=== PATIENT | female | born 1940 | race Caucasian/White ===

== ENCOUNTER 2018-01-30 08:26 | Outpatient (REF) | payer MEDICARE, SELFPAY ==
[2018-01-30 14:28] LABS: HCT 42.2 % (36.0-46.0); HGB 13.9 g/dL (12.0-15.5); Mean Corp. HGB Concentration 32.9 g/dL (32.0-36.0); Mean Corpuscular Hemoglobin 31.5 pg (27.0-33.0); Mean Corpuscular Volume 95.7 fL (80-95); Mean Platelet Volume 11.3 fL (8.0-11.0); Platelet Count 187 x1000/uL (130-400); RBC 4.41 m/cumm (4.00-5.20); RBC Distribution Width 14.6 % (11.7-14.6); White Blood Cell Count 4.92 k/cumm (4.4-10.8)
[2018-01-30 14:35] LABS: BUN 18 mg/dL (7-18); CREATININE 1.06 mg/dL (0.55-1.02); Chloride 105 mmol/L (98-107); Estimated GFR 50.54 (mL/min/1.73m2); Glucose 127 mg/dL (70-100); Sodium 141 mmol/L (136-145); Vitamin B12 441 pg/mL (193-986)
[2018-01-30 14:45] LABS: Hemoglobin A1C 6.1 % (4.5-6.2)
== END 2018-01-30 08:46 ==
LOC: NCHCN 08:26
PROVIDERS: PCP Family Medicine; Visit Provider Family Medicine
DX: E53.8 Deficiency of other specified B group vitamins (principal); K21.9 Gastro-esophageal reflux disease without esophagitis; E11.9 Type 2 diabetes mellitus without complications
CPT/HCPCS: 80048; 85027; 82607; 83036

== ENCOUNTER 2018-07-04 16:28 | Outpatient (REF) | payer MEDICARE, BC, SELFPAY ==
[2018-07-04 20:19] LABS: HCT 40.9 % (36.0-46.0); HGB 13.8 g/dL (12.0-15.5); Mean Corp. HGB Concentration 33.7 g/dL (32.0-36.0); Mean Corpuscular Hemoglobin 31.7 pg (27.0-33.0); Mean Platelet Volume 11.4 fL (8.0-11.0); Platelet Count 185 x1000/uL (130-400); RBC 4.35 m/cumm (4.00-5.20); RBC Distribution Width 14.7 % (11.7-14.6); White Blood Cell Count 6.68 k/cumm (4.4-10.8)
[2018-07-04 20:41] LABS: ALT 20 U/L (12-78); AST 13 U/L (15-37); Albumin 3.7 g/dL (3.4-5.0); Alkaline Phosphatase 71 U/L (46-116); Anion Gap 8.3 mmol/L (3-11); BUN 15 mg/dL (7-18); Bilirubin, Total 0.3 mg/dL (0.2-1.0); CO2 27.7 mmol/L (21.0-32.0); CREATININE 0.91 mg/dL (0.55-1.02); Calcium 9.2 mg/dL (8.5-10.1); Chloride 106 mmol/L (98-107); Glucose 113 mg/dL (70-100); Sodium 142 mmol/L (136-145); Total Protein 7.3 g/dL (6.4-8.2)
[2018-07-04 21:35] LABS: ESR 17 MM/HR (0-30)
== END 2018-07-04 16:48 ==
LOC: NCHCN 16:28
PROVIDERS: PCP Family Medicine; Visit Provider Family Medicine
DX: R51 Headache (principal)
CPT/HCPCS: 80053; 85027; 85652

== ENCOUNTER 2018-07-12 00:51 | Outpatient (CLI) | payer MEDICARE, BC, SELFPAY ==
--- NOTE | 2018-07-12 14:49 | DI.MRI_ITS ---
SYMPTOMS/DIAGNOSIS: HEADACHES, R51, MOSTLY LEFT TEMPORAL X 6 WEEKS, WORSE WITH POSITION CHANGE OR VALSALVA; NORMAL SEDIMENTATION RATE BRAIN MRI: MRI examination of the brain was performed according to the usual protocol. There is mild generalized cerebral atrophy. There are scattered areas of abnormal signal in periventricular and subcortical white matter consistent with microvascular ischemic change. Areas of subtle signal change are also noted in the aleksandra, consistent with microvascular ischemic changes. There is normal flow void in the cabaz[place] of [place] vasculature. The orbital and temporal bone structures appear intact, as does the pituitary. Diffusion weighted imaging shows no evidence of infarction. Susceptibility weighted imaging shows no evidence of hemorrhage. CONCLUSION: Mild cerebral atrophy and presumed microvascular ischemic changes. No other significant abnormality seen.
== END 2018-07-12 01:11 ==
PROVIDERS: PCP Family Medicine; Visit Provider Family Medicine
DX: R51 Headache (principal); G31.1 Senile degeneration of brain, not elsewhere classified; I67.82 Cerebral ischemia
CPT/HCPCS: 70551

== ENCOUNTER 2018-07-30 10:36 | Outpatient (REF) | payer MEDICARE, BC, SELFPAY ==
[2018-07-30 20:01] LABS: COMMENT (LAB VIEW ONLY) 163.86 mg/dL; Microalb ug/mg Crea 4.5 ug/mg Cr
== END 2018-07-30 10:56 ==
LOC: NCHCN 10:36
PROVIDERS: PCP Family Medicine; Visit Provider Family Medicine
DX: E11.9 Type 2 diabetes mellitus without complications (principal)
CPT/HCPCS: 82043; 82570

== ENCOUNTER 2018-09-27 14:13 | Outpatient (CLI) | payer MEDICARE, BC, SELFPAY ==
--- NOTE | 2018-09-27 14:00 | DI.RAD_ITS ---
SYMPTOMS/DIAGNOSIS: CHRONIC COUGH, R05 PA AND LATERAL CHEST: The heart is normal in size. The lungs are clear. The mediastinal structures and pleura appear intact. CONCLUSION: Normal chest. No evidence of acute cardiopulmonary disease.
== END 2018-09-27 14:33 ==
PROVIDERS: PCP Family Medicine; Visit Provider Family Medicine
DX: R05 Cough (principal)
CPT/HCPCS: 71046

== ENCOUNTER 2019-08-23 13:19 | Outpatient (REF) | payer MEDICARE, BC, SELFPAY ==
[2019-08-23 17:43] LABS: COMMENT (LAB VIEW ONLY) 119.68 mg/dL; Microalb ug/mg Crea 2.9 ug/mg Cr
== END 2019-08-23 13:39 ==
LOC: NCHCN 13:19
PROVIDERS: PCP Family Medicine; Visit Provider Family Medicine
DX: E11.9 Type 2 diabetes mellitus without complications (principal)
CPT/HCPCS: 82043; 82570

== ENCOUNTER 2020-03-13 08:03 | Outpatient (REF) | payer MEDICARE, BC, SELFPAY ==
[2020-03-13 14:09] LABS: HCT 41.7 % (36.0-46.0); HGB 13.4 g/dL (11.2-15.7); MCH 30.5 pg (27.0-33.0); MCHC 32.1 % (32.0-36.0); MCV 94.8 fL (80-95); MPV 11.1 fL (8.0-11.0); Platelet Count 196 10^3/uL (130-400); RDW 14.4 % (11.7-14.6); WBC 5.32 10^3/uL (4.4-10.8)
[2020-03-13 14:50] LABS: Hemoglobin A1C 6.4 % (<5.7)
[2020-03-13 15:17] LABS: Anion Gap 9.6 mmol/L (3-11); BUN 22 mg/dL (7-18); CO2 27.4 mmol/L (21.0-32.0); CREATININE 1.01 mg/dL (0.55-1.02); Calculated LDL 118 mg/dL (<100); Chloride 104 mmol/L (98-107); Cholesterol 204 mg/dL (<200); Estimated GFR 53.15 (mL/min/1.73m2); Glucose 112 mg/dL (74-106); HDL Cholesterol 63 mg/dL (40-60); Potassium 4.2 mmol/L (3.5-5.1); Sodium 141 mmol/L (136-145); TSH (W/Ref FT4) 3.25 uIU/mL (0.36-3.74); Triglyceride 118 mg/dL (<150)
== END 2020-03-13 08:23 ==
LOC: NCHCN 08:03
PROVIDERS: PCP Family Medicine; Visit Provider Family Medicine
DX: E11.9 Type 2 diabetes mellitus without complications (principal)
CPT/HCPCS: 80048; 80061; 85027; 83036; 84443

== ENCOUNTER 2020-09-25 12:48 | Outpatient (REF) | payer MEDICARE, BC, SELFPAY ==
[2020-09-25 17:06] LABS: COMMENT (LAB VIEW ONLY) 94.47 mg/dL; Microalb ug/mg Crea 3.1 ug/mg Cr
== END 2020-09-25 12:49 | disposition home or self-care (01) ==
LOC: NCHCN 12:48
PROVIDERS: PCP Family Medicine; Visit Provider Family Medicine
DX: E11.9 Type 2 diabetes mellitus without complications (principal)
CPT/HCPCS: 82043; 82570

== ENCOUNTER 2020-12-08 01:13 | Outpatient (CLI) | payer MEDICARE, BC, SELFPAY ==
--- NOTE | 2020-12-08 | DI.MAMMO_ITS ---
Exam(s) MAMMO SCREENING EXAM: MAMMO SCREENING CLINICAL HISTORY: SCREENING,Z12.31. TECHNIQUE: Bilateral full field digital CC and MLO mammographic images were obtained with 3D tomosyn thesis and utilizing computer aided detection (CAD). COMPARISON: Prior mammograms dating back to 2011, the most recent being June 2018. FINDINGS: There are no new spiculated masses nor malignant appearing microcalcification groups. There is no significant architectural distortion nor skin thickening-retraction. IMPRESSION: No radiographic evidence of malignancy. BI-RADS Category 1 - Negative Breast Density - Category B - Scattered areas of fibroglandular density Breast density Category C or D implies that the patient has dense breast tissue. Dense breast tissue can make it harder to find cancer on a mammogram. Dense breast tissue is also associated with an incr eased risk of breast cancer. This information about the result of the mammogram report was provided to the patient to raise their awareness. Use this report when you speak with the patient about their risks for breast cancer, which includes their family history. At that time, you may recommend additional screening tests (Ultrasoun d or MRI) as these tests may add significant information. A negative radiographic report should not delay biopsy if a dominant or clinically suspicious mass is present. Up to ten percent of cancers are not identified on mammography. A negative report may reinforce clinical impression. Adenosis and dense breasts may obscure an underlying neoplasm. False positive reports average 6 to 10%. Patient will receive a letter notifying them of these results.
== END 2020-12-08 01:33 ==
PROVIDERS: PCP Family Medicine; Visit Provider Family Medicine
DX: Z12.31 Encounter for screening mammogram for malignant neoplasm of breast (principal)
CPT/HCPCS: 77063; 77067

== ENCOUNTER 2021-03-17 14:44 | Outpatient (REF) | payer MEDICARE, BC, SELFPAY ==
[2021-03-17 16:02] LABS: Hemoglobin A1C 6.1 % (<5.7)
[2021-03-17 16:07] LABS: Anion Gap 5.6 mmol/L (3-11); BUN 18 mg/dL (7-18); CO2 30.4 mmol/L (21.0-32.0); Calcium 9.1 mg/dL (8.5-10.1); Chloride 105 mmol/L (98-107); Estimated GFR 53.62 (mL/min/1.73m2); Glucose 135 mg/dL (74-106); Sodium 141 mmol/L (136-145); Vitamin B12 314 pg/mL (193-986)
== END 2021-03-17 14:45 | disposition home or self-care (01) ==
LOC: NCHCN 14:44
PROVIDERS: PCP Family Medicine; Visit Provider Family Medicine
DX: E11.9 Type 2 diabetes mellitus without complications (principal); E53.8 Deficiency of other specified B group vitamins
CPT/HCPCS: 80048; 82607; 83036

== ENCOUNTER 2021-04-30 00:40 | Outpatient (CLI) | payer MEDICARE, BC, SELFPAY ==
--- NOTE | 2021-04-30 13:41 | DI.DEXA_ITS ---
Exam(s) XR DEXA BONE DENSITY W/WO LOPEZ EXAM: XR DEXA BONE DENSITY W/WO LOPEZ CLINICAL HISTORY: POSTMENOPAUSAL, Z78.0 TECHNIQUE: COMPARISON: Comparison examination is 07/26/2016. FINDINGS: Lateral Spine Image: Unremarkable. No compression deformities identified. Left hip: Total T-Score: -0.1. This compares to 0.7 on the prior examination. Total Z-Score: 1.9 T- and Z-scores: Within normal limits. Lumbar Spine: Total T-Score: 0.7. This compares to 0.6 on the prior examination. Total Z-Score: 3.3 T- and Z-scores: Within normal limits. There is osteoporosis seen in the left forearm with a total T-score of -3.2 and Z-score of -0.4. Thi s compares with a total T-score of -3.2 on the prior examination. IMPRESSION: 1. No evidence of osteoporosis in the left hip or lumbar spine. 2. 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
== END 2021-04-30 01:00 ==
PROVIDERS: PCP Family Medicine; Visit Provider Family Medicine
DX: Z13.820 Encounter for screening for osteoporosis (principal); Z78.0 Asymptomatic menopausal state; M81.0 Age-related osteoporosis without current pathological fracture
CPT/HCPCS: 77080

== ENCOUNTER 2021-09-20 10:28 | Outpatient (REF) | payer MEDICARE, BC, SELFPAY ==
[2021-09-20 17:23] LABS: COMMENT (LAB VIEW ONLY) 25.54 mg/dL
== END 2021-09-20 10:29 | disposition home or self-care (01) ==
LOC: NCHCN 10:28
PROVIDERS: PCP Family Medicine; Visit Provider Family Medicine
DX: E11.9 Type 2 diabetes mellitus without complications (principal)
CPT/HCPCS: 82043; 82570

== ENCOUNTER 2022-03-15 16:40 | Outpatient (REF) | payer MEDICARE, BC, SELFPAY ==
[2022-03-15 18:37] LABS: Anion Gap 6.5 mmol/L (3-11); BUN 21 mg/dL (7-18); CO2 28.5 mmol/L (21.0-32.0); CREATININE 1.1 mg/dL (0.55-1.02); Calcium 9.4 mg/dL (8.5-10.1); Chloride 103 mmol/L (98-107); Estimated GFR 51.11 (mL/min/1.73m2); Glucose 135 mg/dL (74-106); Potassium 3.9 mmol/L (3.5-5.1); Sodium 138 mmol/L (136-145)
[2022-03-17 14:29] LABS: Hemoglobin A1C 6.3 % (<5.7)
== END 2022-03-15 16:41 | disposition home or self-care (01) ==
LOC: NCHCN 16:40
PROVIDERS: PCP Family Medicine; Visit Provider Family Medicine
DX: E11.9 Type 2 diabetes mellitus without complications (principal)
CPT/HCPCS: 80048; 83036

== ENCOUNTER 2022-05-18 14:24 | Outpatient (CLI) | payer MEDICARE, BC, SELFPAY ==
--- NOTE | 2022-05-18 | DI.RAD_ITS ---
Exam(s) XR CHEST 2V PA LATERAL EXAM: XR CHEST 2V PA LATERAL CLINICAL HISTORY: WHEEZING R06.2 COUGH R05.8 TECHNIQUE: 2D digital imaging was performed of the chest. Two images were obtained. PA and lateral views were obtained. COMPARISON: CR XR CHEST 2V PA LATERAL from 09/27/2018 FINDINGS: MEDIASTINUM: Normal. HEART: Normal. PULMONARY VASCULATURE: Normal. LUNGS: Clear. PLEURAL SPACE: No pleural effusion or pneumothorax. BONE:Within normal limits for the patient's age. OTHER FINDINGS:Normal. IMPRESSION: No acute pulmonary findings. DATA REPOSITORY: RADIATION DOSE DELIVERED:
== END 2022-05-18 14:44 ==
LOC: DI 14:24
PROVIDERS: PCP Family Medicine; Visit Provider Nurse Practitioner Family
DX: R06.2 Wheezing (principal); R05.8 Other specified cough
CPT/HCPCS: 71046

== ENCOUNTER → 2022-12-05 02:36 | Outpatient (CLI) | payer MEDICARE, BC, SELFPAY ==
--- NOTE | 2022-12-05 | DI.MAMMO_ITS ---
Exam(s) MAMMO SCREENING EXAM: MAMMO SCREENING CLINICAL HISTORY: SCREENING, Z12.31 TECHNIQUE: Mammograms were interpreted according to the usual protocol including computer analysis w [employer] CAD system, tomosynthesis and C-view imaging. COMPARISON: 2013 through 2020 FINDINGS: The breasts are composed of scattered fibroglandular densities, Breast Density category B. No suspicious masses or suspicious microcalcifications are seen. No skin thickening or abnormal axillary lymph nodes are seen. There has been no significant change from prior exams. IMPRESSION: BI-RADS Category 1, Negative mammogram Yearly screening mammography is recommended. Breast Density - Category B, scattered fibroglandular densities. A negative radiographic report should not delay biopsy if a dominant or clinically suspicious mass is present. Up to ten percent of cancers are not identified on mammography. A negative report may reinforce clinical impression. Adenosis and dense breasts may obscure an underlying neoplasm. False positive reports average 6 to 10%. Patient will receive a letter notifying them of these results.
== END ==
PROVIDERS: PCP Family Medicine; Visit Provider Family Medicine
DX: Z12.31 Encounter for screening mammogram for malignant neoplasm of breast (principal)
CPT/HCPCS: 77063; 77067

== ENCOUNTER 2023-03-27 15:54 | Outpatient (REF) | payer MEDICARE, SELFPAY ==
[2023-03-27 17:31] LABS: HCT 40.7 % (36.0-46.0); HGB 13.3 g/dL (11.2-15.7); MCH 30.4 pg (27.0-33.0); MCHC 32.7 % (32.0-36.0); MCV 93 fL (80-95); MPV 12.1 fL (8.0-11.0); Platelet Count 163 10^3/uL (130-400); RBC 4.37 10^6/uL (3.93-5.22); RDW 14.5 % (11.7-14.6); RDW-SD 49.9 fL; WBC 6.71 10^3/uL (4.4-10.8)
[2023-03-27 17:51] LABS: Hemoglobin A1C 6.3 % (<5.7)
[2023-03-27 17:56] LABS: Anion Gap 5.5 mmol/L (3-11); BUN 17 mg/dL (7-18); CO2 30.5 mmol/L (21.0-32.0); CREATININE 0.9 mg/dL (0.55-1.02); Chloride 106 mmol/L (98-107); Estimated GFR 64.63 (mL/min/1.73m2); Glucose 122 mg/dL (74-106); Potassium 4.5 mmol/L (3.5-5.1); Sodium 142 mmol/L (136-145); Vitamin B12 385 pg/mL (193-986)
== END 2023-03-27 15:55 | disposition home or self-care (01) ==
LOC: NCHCN 15:54
PROVIDERS: PCP Family Medicine; Visit Provider Family Medicine
DX: E11.9 Type 2 diabetes mellitus without complications (principal); E53.8 Deficiency of other specified B group vitamins
CPT/HCPCS: 80048; 85027; 82607; 83036

== ENCOUNTER 2023-12-25 16:16 | Outpatient (REF) | payer MEDICARE, SELFPAY ==
[2023-12-25 19:18] LABS: HCT 41.8 % (36.0-46.0); HGB 13.4 g/dL (11.2-15.7); MCH 30.5 pg (27.0-33.0); MCHC 32.1 % (32.0-36.0); MCV 95 fL (80-95); MPV 12.5 fL (8.0-11.0); Platelet Count 159 10^3/uL (130-400); RDW 14.4 % (11.7-14.6); RDW-SD 50.4 fL; WBC 6.05 10^3/uL (4.4-10.8)
[2023-12-25 20:02] LABS: ALT 17 U/L (14-59); AST 14 U/L (15-37); Albumin 3.5 g/dL (3.4-5.0); Alkaline Phosphatase 74 U/L (46-116); Anion Gap 8.5 mmol/L (3-11); BUN 15 mg/dL (7-18); Bilirubin, Total 0.32 mg/dL (0.2-1.0); CO2 27.5 mmol/L (21.0-32.0); CREATININE 0.9 mg/dL (0.55-1.02); Calcium 9.3 mg/dL (8.5-10.1); Chloride 107 mmol/L (98-107); Estimated GFR 64.23 (mL/min/1.73m2); Glucose 111 mg/dL (74-106); NT-proBNP 253 pg/mL (<300); Potassium 4.7 mmol/L (3.5-5.1); Sodium 143 mmol/L (136-145); Total Protein 7.1 g/dL (6.4-8.2)
[2023-12-25 20:28] LABS: Hemoglobin A1C 6.3 % (<5.7)
== END 2023-12-25 16:17 | disposition home or self-care (01) ==
LOC: NCHCN 16:16
PROVIDERS: PCP Family Medicine; Visit Provider Family Medicine
DX: E11.9 Type 2 diabetes mellitus without complications (principal); R06.09 Other forms of dyspnea
CPT/HCPCS: 80053; 85027; 83036; 83880

== ENCOUNTER 2024-01-05 07:04 | Day surgery (SDC) | payer MEDICARE, SELFPAY ==
[2024-01-05 07:07] VITALS: BP 157/81; PULSE 60; RESP 16; TEMP 36.3; O2SAT 99
[2024-01-05] MEDS: Tropicam./Phenyleph. (1/2.5%) 5 ML BTL OS ×3 (07:19→07:30)
--- NOTE | 2024-01-05 07:49 | ANES.PREOP_ITS ---
General Info Date of Service Date Performed: 01/05/24 Height: 5 ft 4 in Weight: 70.3 kg Body Mass Index (BMI): 26.6 Surgical Procedure: Operation Date: 01/05/24 09:40 Proposed Procedure Side Surgeon p Cataract Extraction with IOL Implant Left Frank Cancino MD Meds Allergies and Home Medications Allergies Allergy/AdvReac Type Severity Reaction Status Date / Time Penicillins AdvReac Severe Nausea Verified 01/05/24 07:19 Home Medication ?Medication ?Instructions ?Recorded cholecalciferol (vitamin D3) 50 2,000 units PO DAILY 03/13/13 mcg (2,000 unit) capsule (Vitamin D3) cyanocobalamin (vitamin B-12) 1 mcg PO DAILY 03/13/13 1,000 mcg tablet (Vitamin B-12) azelastine 137 mcg (0.1 %) nasal 2 spray intranasal BID 01/02/24 spray pantoprazole 40 mg tablet,delayed 40 mg PO DAILY 01/02/24 release Current Visit Medications: Current Medications Generic Name Dose Route Start Last Admin Trade Name Freq PRN Reason Stop Dose Admin Acetaminophen 1,000 mg 01/05/24 06:00 Acetaminophen 500 Mg Tab PO 02/04/24 05:59 Q4H PRN PRN Balanced Salt Solution 500 ml 01/05/24 06:00 Balanced Salt Soln.-Plus 500 Ml Bag OP 02/04/24 05:59 DIRECTED ESTRELLA Miscellaneous Medication 0 ml 01/05/24 06:00 Prednisolone 1%, Moxifloxacin 0.5%, Bromfenac 0.09% 5.6ml Btl OS 02/04/24 05:59 DIRECTED ESTRELLA Miscellaneous Medication 0 ml 01/05/24 06:00 01/05/24 07:30 Tropicam./Phenyleph. (1/2.5%) 5 Ml Btl OS 02/04/24 05:59 1 drp DIRECTED ESTRELLA Administration Tetracaine HCl 0 ml 01/05/24 06:00 Tetracaine 0.5% 4 Ml Btl OS 02/04/24 05:59 DIRECTED ESTRELLA PFSH Active Problems Active Problems: Problem Status Onset Code Nuclear age-related cataract, left eye Acute H25.12 Throat clearing Acute R68.89 Chronic cough Acute R05 Globus sensation Acute R09.89 Medical History Medical History Prediabetes Diverticulosis Seborrheic dermatitis Allergic rhinitis Osteoarthritis Type 2 diabetes mellitus without complication GERD (gastroesophageal reflux disease) Vitamin B 12 deficiency Melanoma Tobacco Smoking/Tobacco Use Status: Former Tobacco Use Alcohol Alcohol Intake: current Alcohol intake frequency: 0-2 drinks per day Alcohol type: wine Substance Use Substance use: Never Substance use type: does not use Vital Signs and Lab Results Vital Signs Most Recent Vital Signs in EMR: Most Recent Vital Signs Temp Pulse Resp BP Pulse Ox 36.3 C L 60 16 157/81 H 99 01/05/24 07:07 01/05/24 07:07 01/05/24 07:07 01/05/24 07:07 01/05/24 07:07 Point of Care Results Point of Care Results: Finger Stick Blood Glucose 124 01/05/24 07:21 Lab Results Blood Type / Crossmatch: No Data to Display Complete Blood Count: White Blood Count 6.05 10^3/uL (4.4-10.8) 12/25/23 11:40 Red Blood Count 4.40 10^6/uL (3.93-5.22) 12/25/23 11:40 Hemoglobin 13.4 g/dL (11.2-15.7) 12/25/23 11:40 Hematocrit 41.8 % (36.0-46.0) 12/25/23 11:40 Platelet Count 159 10^3/uL (130-400) 12/25/23 11:40 Complete Metabolic Panel: Sodium 143 mmol/L (136-145) 12/25/23 11:40 Potassium 4.7 mmol/L (3.5-5.1) 12/25/23 11:40 Chloride 107 mmol/L (98-107) 12/25/23 11:40 Carbon Dioxide 27.5 mmol/L (21.0-32.0) 12/25/23 11:40 BUN 15 mg/dL (7-18) 12/25/23 11:40 Creatinine 0.9 mg/dL (0.55-1.02) 12/25/23 11:40 Est GFR (CKD-EPI 2020) 64.23 (mL/min/1.73m2) 12/25/23 11:40 Calcium 9.3 mg/dL (8.5-10.1) 12/25/23 11:40 Albumin 3.5 g/dL (3.4-5.0) 12/25/23 11:40 Glucose 111 mg/dL (74-106) H 12/25/23 11:40 Hemoglobin A1c 6.3 % (<5.7) H 12/25/23 11:40 Liver Function Panel: Alanine Aminotransferase (ALT/SGPT) 17 U/L (14-59) 12/25/23 11: 40 Aspartate Amino Transf (AST/SGOT) 14 U/L (15-37) L 12/25/23 11: 40 Coagulation Panel: No Data to Display Cardiac Panel: NT-Pro-B Natriuret Pep 253 pg/mL (<300) 12/25/23 Arterial Blood Gas: No Data to Display Venous Blood Gas: No Data to Display Pancreas Panel: No Data to Display Thyroid Panel: No Data to Display Infectious Disease: No Data to Display Blood Cultures: 2 No Data to Display Toxicology Panel: No Data to Display Imaging and Studies Imaging and Studies Study information below may be from another EMR and interpreted by another provider. Please see original notes in EMR for more complete details. Stress Test Summary: 06/18/14 IMPRESSION: Borderline stress test after maximal exercise. COMMENTS: 1. Functional capacity was diminished 2. Heart rate and bp response to stress were normal. Normal recovery. 3. Mac treadmill score -1. This score predicts a moderate risk of cardiac events. RECOMMENDATIONS: Stress test myocardial perfusion imaging or stress echocardiogram should be performed if clinically indicated. Echocardiogram Summary: 06/30/14 Impressions: Normal study. Summary: 1. Left ventricle: The cavity size was normal. Wall thickness was normal. Systolic function was normal. The estimated ejection fraction was 65%. Wall motion was normal; there were no regional wall motion abnormalities. 2. Aortic valve: Valve area: 3.1cm^2(VTI). Valve area: 3cm^2 (Vmax). 3. Right ventricle: The cavity size was normal. Wall thickness was normal. Systolic function was normal. Anesthesia Assessment and Plan Anesthesia History Personal History: No History of Anesthesia Complications Family History: No Family History of Anesthesia Complications Exercise Tolerance Exercise Tolerance: Metabolic Equivalents>4 Pertinent Negatives Pertinent Negatives: No Symptoms of GERD, No Major Cardiovascular Symptoms or Complaints and No Major Pulmonary Symptoms or Complaints Cardiac & Pulmonary Exam Cardiac Exam: Normal S1/S2 Heart Sounds Pulmonary Exam: Clear Bilateral Breath Sounds Implantable Cardiac Device Does patient have a Pacemaker or an ICD?: No Airway Exam Known Difficult Airway: No Mallampati Class: 3 Mouth Opening: Normal (> 3cm) Thyromental Distance: Greater than 3 cm Neck Range of Motion: Full ROM Neck Circumference: Normal Teeth Condition: Normal Dentition ASA Classification ASA Score: ASA 2 Emergency Case?: No NPO Status NPO Status: NPO Clears >2 hours, Solids >8 hours Anesthesia Plan Resuscitation Status: Full Code Anesthesia Technique: MAC Anesthesia Airway Planned: Natural Airway Monitors Used: Standard Monitors
[2024-01-05 07:51] VITALS: BMI 26.6
[2024-01-05] MEDS: Povidone-Iodine Ophth 30 ML BTL (09:16)
[2024-01-05] MEDS: Tetracaine 0.5% 4 ML BTL OS (09:18)
[2024-01-05] MEDS: Lidocaine 1% Pres-Free 5 ML VIAL (09:23)
[2024-01-05] MEDS: Duovisc Viscoelastic System EACH 1 EACH (09:23)
[2024-01-05] MEDS: Balanced Salt Soln.-PLUS 500 ML BAG OP (09:23)
[2024-01-05] MEDS: Prednisolone 1%, Moxifloxacin 0.5%, Bromfenac 0.09% 5.6ML BTL OS (09:40)
--- NOTE | 2024-01-05 09:46 | ROE_ITS ---
Date of service: 01/05/24 Time of Service: 09:47 Operative Note Operative Note DATE OF PROCEDURE: 01/05/24 PRE-OP DIAGNOSIS: Nuclear cataract, left eye POST-OP DIAGNOSIS: same PROCEDURE: Cataract extraction using phacoemulsification with intraocular lens implant, left eye SURGEON: Frank Cancino ANESTHESIA TYPE: Local By Surgeon and MAC Refer to Anesthesia Record PATHOLOGY: none sent COMPLICATIONS: None Patient was transported to: same day Patient's condition: stable Implants: Phil Clareon [id number] Indications: Progressive decreased vision due to cataract, left eye Procedure Description: CATARACT SURGERY OPERATIVE REPORT PREOPERATIVE DIAGNOSIS: Nuclear cataract, left eye POSTOPERATIVE DIAGNOSIS: Same OPERATION: Cataract extraction using phacoemulsification with posterior chamber intraocular lens implant, left eye. IOL: IOL Account Resolution Expert/Model: Phil Clareon [id number] IOL Power: + 23.0 diopters IOL Serial Number: [id number] Optic Diameter: 6.0mm Haptic/Overall Diameter: 13.0mm PHACO INFO: Phil Interneerurion Vision System with OZil and Active Fluidics Cumulative Dispersed Energy (CDE): 11.1 seconds SURGEON: Frank Cancino MD, SONIYA ANESTHESIA: Monitored Anesthesia Care (MAC), with local sub-tenon's anesthetic infiltration COMPLICATIONS: None SPECIMENS: None INDICATIONS FOR PROCEDURE: The patient is a 83-year-old lady with history of diminished visual acuity in her left eye secondary to the development of nuclear cataract. She is significantly symptomatic that she desires cataract surgery and attempt to improve and maximize her vision. The option of cataract surgery was offered to the patient and she wished to proceed. See office notes for detailed information. PROCEDURE: The correct surgical eye was identified and marked as the left eye and the pupil was dilated in the preoperative area using mydriatics and cycloplegics. The dilated pupil size was 5.0 mm. The patient elected to proceed without oral sedation. The patient was brought to the operating room where cardiopulmonary monitoring was instituted and surgical time-out was performed, confirming the correct operative eye and IOL power. Topical anesthesia was administered and ophthalmic povidone-iodine 5% was insti lled into the conjunctival fornices. The dhara-ocular area was prepped with Betadine 10% solution and draped in the usual sterile fashion for intraocular surgery, including an aperture drape. A Tegaderm transparent film dressing was cut in half and used to cover the lashes and lid margins. Care was taken to sequester the lashes and lid margins under the Tegaderm dressing. A lid speculum was placed between the lids of the operative eye and the Phil LuxOR Revalia operating microscope was maneuvered into position. Noreen scissors were then used to make a conjunctival buttonhole approximately 6mm posterior to the limbus in the inferonasal quadrant. Blunt dissection was carried out to expose bare sclera, and a blunt-tipped sub-tenon?s anesthesia cannula was introduced and passed posteriorly along the globe where non- preserved plain lidocaine was injected into posterior sub-Tenon?s space. A sideport knife was used to make a paracentesis port. Intraocular phenylephrine/lidocaine was injected into the anterior chamber. The anterior chamber was then filled with viscoelastic. A keratome knife was used construct a two-plane clear corneal tunnel extending 2.0mm into clear cornea. A flap was raised on the anterior capsule and capsulorhexis forceps were used to complete a continuous curvilinear capsulorhexis of 5.0 mm. Balanced salt solution was then used to perform cortical cleaving hydrodissection and nuclear hydrodelineation until the lens could be freely rotated within the capsular bag. The lens nucleus was then disassembled and removed within the capsular bag and iris plane using phacoemulsification. Residual cortical material was removed using the irrigation/aspiration handpiece. The posterior capsule was carefully polished to remove as much residual lens epithelial cells as safely possible. The capsular bag was then inflated and the anterior chamber deepened with viscoelastic. The lens implant described above was inserted into the capsular bag using the Phil Autonome Injector. A Kuglen hook was used to dial the IOL into position. Residual viscoelastic was then removed first from posterior to the IOL, then from the anterior chamber using the I/A handpiece. The lens implant was noted to center nicely within the capsular bag. The incisions were stromally hydrated, and the anterior chamber was reformed using BSS. Then 0.5cc of moxifloxacin 1.0mg/ml were injected into the capsular bag and anterior chamber. The incisions were checked with a Weck spear and found to be secure. Several drops of ophthalmic povidone-iodine 5% were then applied to the eye followed by two drops of combination steroid/NSAID/antibiotic solution. The drapes were removed and a clear plastic protective eye shield was placed over the eye. The patient was then returned to [facility] Day Surgery in stable condition.
--- NOTE | 2024-01-05 09:46 | W.PM.DSUDISC ---
Date of service: 01/05/24 Time of Service: 09:46 Discharge Plan Disposition Patient Disposition: Home Discharge Details Attending Provider: Frank Cancino Primary Care Provider: Nayla Rosenbaum Home Meds and New Rx's Prescriptions: No Action cyanocobalamin (vitamin B-12) [Vitamin B-12] 1,000 MCG tablet 1 mcg PO DAILY cholecalciferol (vitamin D3) [Vitamin D3] 2,000 UNIT capsule 2,000 units PO DAILY pantoprazole 40 mg tablet,delayed release (DR/EC) 40 mg PO DAILY azelastine 137 mcg (0.1 %) spray,non-aerosol 2 spray INTRANASAL BID Patient Comments: SPRAY 1-2 SPRAYS INTO BOTH NOSTRILS TWO TIMES A DAY Discharge Instructions Stand Alone Forms: [facility] Post-Op Cataract, Jose Mahoney ([facility]) Discharge Orders Discharge Orders: Discharge Order (Routine); Ordered 01/05/24 Ordered By: Frank Cancino DS: Diagnosis Discharge Diagnosis (1) Nuclear age-related cataract, left eye: Status: Resolved
[2024-01-05 09:47] VITALS: BP 161/74; PULSE 63; RESP 18; TEMP 36.6; O2SAT 98
--- NOTE | 2024-01-05 10:38 | W.ANESPOSTOP ---
Postoperative Evaluation Date, Time and Location Date Performed: 01/05/24 Time Performed: 09:52 Patient Location: Day Surgery Unit Vital Signs Most Recent Imported Vital Signs: Most Recent Vital Signs Temp Pulse Resp BP Pulse Ox 36.6 C 63 18 161/74 H 98 01/05/24 09:47 01/05/24 09:47 01/05/24 09:47 01/05/24 09:47 01/05/24 09:47 Pain Score Most Recent Pain Score: Most Recent Pain Score Pain Level 0 01/05/24 09:47 Assessment Mental Status: Awake (Alert & Oriented to Patient Baseline) Airway and Respiratory Function: Patent airway with normal (patient baseline) respiratory exam Cardiovascular Function: Hemodynamically Stable Hydration Status: Adequately Hydrated Nausea & Vomiting: No Nausea or Vomiting Pain: Pt. Denies Any Pain Peripheral Nerve Block: Patient did not receive a nerve block
== END 2024-01-05 10:30 | disposition home or self-care (01) ==
LOC: SUR 07:04
PROVIDERS: PCP Family Medicine; Visit Provider Ophthalmology
PROC: (CPT 66984; principal; 2024-01-05 09:30)
DX: H25.12 Age-related nuclear cataract, left eye (principal)
CPT/HCPCS: 66984; 00123; V2632; J2003

== ENCOUNTER 2024-01-19 06:31 | Day surgery (SDC) | payer MEDICARE, SELFPAY ==
[2024-01-19] MEDS: Tropicam./Phenyleph. (1/2.5%) 5 ML BTL OD ×3 (06:47→06:57)
[2024-01-19 06:48] VITALS: BP 146/76; PULSE 60; RESP 17; TEMP 36.4; O2SAT 98
--- NOTE | 2024-01-19 08:09 | ANES.PREOP_ITS ---
General Info Date of Service Date Performed: 01/19/24 Height: 5 ft 4 in Weight: 70.5 kg Body Mass Index (BMI): 26.6 Surgical Procedure: Operation Date: 01/19/24 08:40 Proposed Procedure Side Surgeon p Cataract Extraction with IOL Implant Right Frank Cancino MD Meds Allergies and Home Medications Allergies Allergy/AdvReac Type Severity Reaction Status Date / Time Penicillins AdvReac Severe Nausea Verified 01/19/24 06:54 Home Medication ?Medication ?Instructions ?Recorded cholecalciferol (vitamin D3) 50 2,000 units PO DAILY 03/13/13 mcg (2,000 unit) capsule (Vitamin D3) cyanocobalamin (vitamin B-12) 1 mcg PO DAILY 03/13/13 1,000 mcg tablet (Vitamin B-12) azelastine 137 mcg (0.1 %) nasal 2 spray intranasal BID 01/02/24 spray pantoprazole 40 mg tablet,delayed 40 mg PO DAILY 01/02/24 release Current Visit Medications: Current Medications Generic Name Dose Route Start Last Admin Trade Name Freq PRN Reason Stop Dose Admin Acetaminophen 1,000 mg 01/19/24 06:15 Acetaminophen 500 Mg Tab PO 02/18/24 06:14 Q4H PRN PRN Balanced Salt Solution 500 ml 01/19/24 06:15 Balanced Salt Soln.-Plus 500 Ml Bag OP 02/18/24 06:14 DIRECTED ESTRELLA Miscellaneous Medication 0 ml 01/19/24 06:15 Prednisolone 1%, Moxifloxacin 0.5%, Bromfenac 0.09% 5.6ml Btl OD 02/18/24 06:14 DIRECTED ESTRELLA Miscellaneous Medication 0 ml 01/19/24 06:15 01/19/24 06:57 Tropicam./Phenyleph. (1/2.5%) 5 Ml Btl OD 02/18/24 06:14 1 drp DIRECTED ESTRELLA Administration Tetracaine HCl 0 ml 01/19/24 06:15 Tetracaine 0.5% 4 Ml Btl OD 02/18/24 06:14 DIRECTED ESTRELLA PFSH Active Problems Active Problems: Problem Status Onset Code Nuclear age-related cataract, right eye Acute H25.11 Nuclear age-related cataract, left eye Resolved H25.12 Throat clearing Acute R68.89 Chronic cough Acute R05 Globus sensation Acute R09.89 Medical History Medical History Prediabetes Diverticulosis Seborrheic dermatitis Allergic rhinitis Osteoarthritis Type 2 diabetes mellitus without complication GERD (gastroesophageal reflux disease) Vitamin B 12 deficiency Melanoma Tobacco Smoking/Tobacco Use Status: Former Tobacco Use Alcohol Alcohol Intake: current Alcohol intake frequency: 0-2 drinks per day Alcohol type: wine Substance Use Substance use: Never Substance use type: does not use Vital Signs and Lab Results Vital Signs Most Recent Vital Signs in EMR: Most Recent Vital Signs Temp Pulse Resp BP Pulse Ox 36.4 C L 60 17 146/76 H 98 01/19/24 06:48 01/19/24 06:48 01/19/24 06:48 01/19/24 06:48 01/19/24 06:48 Point of Care Results Point of Care Results: Finger Stick Blood Glucose 131 01/19/24 06:46 Lab Results Blood Type / Crossmatch: No Data to Display Complete Blood Count: White Blood Count 6.05 10^3/uL (4.4-10.8) 12/25/23 11:40 Red Blood Count 4.40 10^6/uL (3.93-5.22) 12/25/23 11:40 Hemoglobin 13.4 g/dL (11.2-15.7) 12/25/23 11:40 Hematocrit 41.8 % (36.0-46.0) 12/25/23 11:40 Platelet Count 159 10^3/uL (130-400) 12/25/23 11:40 Complete Metabolic Panel: Sodium 143 mmol/L (136-145) 12/25/23 11:40 Potassium 4.7 mmol/L (3.5-5.1) 12/25/23 11:40 Chloride 107 mmol/L (98-107) 12/25/23 11:40 Carbon Dioxide 27.5 mmol/L (21.0-32.0) 12/25/23 11:40 BUN 15 mg/dL (7-18) 12/25/23 11:40 Creatinine 0.9 mg/dL (0.55-1.02) 12/25/23 11:40 Est GFR (CKD-EPI 2020) 64.23 (mL/min/1.73m2) 12/25/23 11:40 Calcium 9.3 mg/dL (8.5-10.1) 12/25/23 11:40 Albumin 3.5 g/dL (3.4-5.0) 12/25/23 11:40 Glucose 111 mg/dL (74-106) H 12/25/23 11:40 Hemoglobin A1c 6.3 % (<5.7) H 12/25/23 11:40 Liver Function Panel: Alanine Aminotransferase (ALT/SGPT) 17 U/L (14-59) 12/25/23 11: 40 Aspartate Amino Transf (AST/SGOT) 14 U/L (15-37) L 12/25/23 11: 40 Coagulation Panel: No Data to Display Cardiac Panel: NT-Pro-B Natriuret Pep 253 pg/mL (<300) 12/25/23 Arterial Blood Gas: No Data to Display Venous Blood Gas: No Data to Display Pancreas Panel: No Data to Display Thyroid Panel: No Data to Display Infectious Disease: No Data to Display Blood Cultures: No Data to Display Toxicology Panel: No Data to Display Imaging and Studies Imaging and Studies Study information below may be from another EMR and interpreted by another provider. Please see original notes in EMR for more complete details. Stress Test Summary: 06/18/14 IMPRESSION: Borderline stress test after maximal exercise. COMMENTS: 1. Functional capacity was diminished 2. Heart rate and bp response to stress were normal. Normal recovery. 3. Mac treadmill score -1. This score predicts a moderate risk of cardiac events. RECOMMENDATIONS: Stress test myocardial perfusion imaging or stress echocardiogram should be performed if clinically indicated. Echocardiogram Summary: 06/30/14 Impressions: Normal study. Summary: 1. Left ventricle: The cavity size was normal. Wall thickness was normal. Systolic function was normal. The estimated ejection fraction was 65%. Wall motion was normal; there were no regional wall motion abnormalities. 2. Aortic valve: Valve area: 3.1cm^2(VTI). Valve area: 3cm^2 (Vmax). 3. Right ventricle: The cavity size was normal. Wall thickness was normal. Systolic function was normal. Anesthesia Assessment and Plan Anesthesia History Personal History: No History of Anesthesia Complications Family History: No Family History of Anesthesia Complications Exercise Tolerance Exercise Tolerance: Metabolic Equivalents>4 Pertinent Negatives Pertinent Negatives: No Symptoms of GERD and No Major Pulmonary Symptoms or Complaints Cardiac & Pulmonary Exam Cardiac Exam: Normal S1/S2 Heart Sounds Pulmonary Exam: Clear Bilateral Breath Sounds Implantable Cardiac Device Does patient have a Pacemaker or an ICD?: No Airway Exam Known Difficult Airway: No Mallampati Class: 3 Mouth Opening: Normal (> 3cm) Thyromental Distance: Greater than 3 cm Neck Range of Motion: Full ROM Neck Circumference: Normal Teeth Condition: Normal Dentition ASA Classification ASA Score: ASA 2 Emergency Case?: No NPO Status NPO Status: NPO Clears >2 hours, Solids >8 hours Anesthesia Plan Resuscitation Status: Full Code Anesthesia Technique: MAC Anesthesia Airway Planned: Natural Airway Monitors Used: Standard Monitors Preoperative Comments:: Patient reports a couple episodes of chest pain last week that started under her left breast and radiates around to her left scapula. Patient reports she was evaluated by Dr. Rosenbaum who completed an EKG that was normal as well as blood tests. Patient was educated that given the new onset of symptoms, it would be prudent to review the note by her primary care as well as the EKG/bloodwork findings. Patient voices frustration that case is being delayed this morning and stated, I wish I had never told you about this. Patient assured that we are working to obtain the proper documentation as quickly as possible to proceed with her second cataract surgery. LP Called Dr. Rosenbaum' office, patient's last visit was for her Preop H&P which does not mention any chest discomfort or EKG findings. No change in symptoms, no present discomfort. Will proceed today with no sedation. RB
[2024-01-19 08:36] VITALS: BMI 26.6
[2024-01-19] MEDS: Tetracaine 0.5% 4 ML BTL (08:43)
[2024-01-19] MEDS: Povidone-Iodine Ophth 30 ML BTL (08:43)
[2024-01-19] MEDS: Duovisc Viscoelastic System EACH 1 EACH (08:48)
[2024-01-19] MEDS: Balanced Salt Soln.-PLUS 500 ML BAG OP (08:48)
[2024-01-19] MEDS: Lidocaine 1% Pres-Free 5 ML VIAL (08:48)
[2024-01-19] MEDS: Prednisolone 1%, Moxifloxacin 0.5%, Bromfenac 0.09% 5.6ML BTL 5.6 ML (09:04)
[2024-01-19 09:06] VITALS: BP 150/67; PULSE 70; RESP 16; TEMP 36.5; O2SAT 98
--- NOTE | 2024-01-19 09:08 | ROE_ITS ---
Operative Note Operative Note PRE-OP DIAGNOSIS: Nuclear cataract, right eye POST-OP DIAGNOSIS: same PROCEDURE: Cataract extraction using phacoemulsification with intraocular lens implant, right eye SURGEON: Frank Cancino ANESTHESIA TYPE: Local By Surgeon and MAC Refer to Anesthesia Record ESTIMATED BLOOD LOSS: 0 PATHOLOGY: none sent COMPLICATIONS: None Patient was transported to: same day Patient's condition: stable Implants: Phil Clareon [id number] Indications: Progressive decreased vision due to cataract, right eye Procedure Description: CATARACT SURGERY OPERATIVE REPORT PREOPERATIVE DIAGNOSIS: Nuclear cataract, right eye POSTOPERATIVE DIAGNOSIS: Same OPERATION: Cataract extraction using phacoemulsification with posterior chamber intraocular lens implant, right eye. IOL: IOL Therapy Director/Model: Phil Clareon [id number] IOL Power: + 24.0 diopters IOL Serial Number: [id number] Optic Diameter: 6.0mm Haptic/Overall Diameter: 13.0mm PHACO INFO: Phil [employer] Vision System with OZil and Active Fluidics Cumulative Dispersed Energy (CDE): 12.80 seconds SURGEON: Frank Cancino MD, SONIYA ANESTHESIA: Monitored Anesthesia Care (MAC), with local sub-tenon's anesthetic infiltration COMPLICATIONS: None SPECIMENS: None INDICATIONS FOR PROCEDURE: The patient is an 83-year-old lady with history of diminished visual acuity in both eyes secondary to the development of bilateral nuclear cataract. She has already undergone cataract surgery in the left eye and is doing well postoperatively. She now presents for cataract surgery in the right eye. See office notes for detailed information. PROCEDURE: The correct surgical eye was identified and marked as the right eye and the pupil was dilated in the preoperative area using mydriatics and cycloplegics. The dilated pupil size was 6.0 mm. The patient elected to proceed without oral sedation. The patient was brought to the operating room where cardiopulmonary monitoring was instituted and surgical time-out was performed, confirming the correct operative eye and IOL power. Topical anesthesia was administered and ophthalmic povidone-iodine 5% was instilled into the conjunctival fornices. The dhara-ocular area was prepped with Betadine 10% solution and draped in the usual sterile fashion for intraocular surgery, including an aperture drape. A Tegaderm transparent film dressing was cut in half and used to cover the lashes and lid margins. Care was taken to sequester the lashes and lid margins under the Tegaderm dressing. A lid speculum was placed between the lids of the operative eye and the Phil Lux[employer] Revalia operating microscope was maneuvered into position. Noreen scissors were then used to make a conjunctival buttonhole approximately 6mm posterior to the limbus in the inferonasal quadrant. Blunt dissection was carried out to expose bare sclera, and a blunt-tipped sub-tenon?s anesthesia cannula was introduced and passed posteriorly along the globe where non- preserved plain lidocaine was injected into posterior sub-Tenon?s space. A sideport knife was used to make a paracentesis port. Intraocular phenylephrine/lidocaine was injected into the anterior chamber. The anterior chamber was then filled with viscoelastic. A keratome knife was used to construct a two--plane clear corneal tunnel extending 2.0mm into clear cornea. A flap was raised on the anterior capsule and capsulorhexis forceps were used to complete a continuous curvilinear capsulorhexis of 5.0 mm. Balanced salt solution was then used to perform cortical cleaving hydrodissection and nuclear hydrodelineation until the lens could be freely rotated within the capsular bag. The lens nucleus was then disassembled and removed within the capsular bag and iris plane using phacoemulsification. Residual cortical material was removed using the I/A handpiece. The posterior capsule was carefully polished to remove as much residual lens epithelial cells as safely possible. The capsular bag was then inflated and the anterior chamber deepened with cohesive viscoelastic. The lens implant described above was inserted into the capsular bag using the Phil Autonome Injector. A Kuglen hook was used to dial the IOL into position. Residual viscoelastic was then removed first from posterior to the IOL, then from the anterior chamber using the I/A handpiece. The lens implant was noted to center nicely within the capsular bag. The incisions were stromally hydrated, and the anterior chamber was reformed using BSS. Then 0.5cc of moxifloxacin 1.0mg/ml were injected into the capsular bag and anterior chamber. The incisions were checked with a Weck spear and found to be secure. Several drops of ophthalmic povidone-iodine 5% were then applied to the eye followed by two drops of combination steroid/NSAID/antibiotic solution. The drapes were removed and a clear plastic protective eye shield was placed over the eye. The patient was then returned to Same Day Surgery in stable condition. Date of Procedure: 01/19/24
--- NOTE | 2024-01-19 09:08 | W.PM.DSUDISC ---
Date of service: 01/19/24 Time of Service: 09:08 Discharge Plan Disposition Patient Disposition: Home Discharge Details Attending Provider: Frank Cancino Primary Care Provider: Nayla Rosenbaum Home Meds and New Rx's Prescriptions: No Action cyanocobalamin (vitamin B-12) [Vitamin B-12] 1,000 MCG tablet 1 mcg PO DAILY cholecalciferol (vitamin D3) [Vitamin D3] 2,000 UNIT capsule 2,000 units PO DAILY pantoprazole 40 mg tablet,delayed release (DR/EC) 40 mg PO DAILY azelastine 137 mcg (0.1 %) spray,non-aerosol 2 spray INTRANASAL BID Patient Comments: SPRAY 1-2 SPRAYS INTO BOTH NOSTRILS TWO TIMES A DAY Discharge Instructions Stand Alone Forms: [facility] Post-Op Cataract, Jose Mahoney ([facility]) Discharge Orders Discharge Orders: Discharge Order (Routine); Ordered 01/19/24 Ordered By: Frank Cancino DS: Diagnosis Discharge Diagnosis (1) Nuclear age-related cataract, right eye: Status: Resolved
--- NOTE | 2024-01-19 10:00 | W.ANESPOSTOP ---
Postoperative Evaluation Date, Time and Location Date Performed: 01/19/24 Time Performed: 09:06 Patient Location: Day Surgery Unit Vital Signs Most Recent Imported Vital Signs: Most Recent Vital Signs Temp Pulse Resp BP Pulse Ox 36.5 C 70 16 150/67 H 98 01/19/24 09:06 01/19/24 09:06 01/19/24 09:06 01/19/24 09:06 01/19/24 09:06 Pain Score Most Recent Pain Score: Most Recent Pain Score Pain Level 0 01/19/24 09:06 Assessment Mental Status: Awake (Alert & Oriented to Patient Baseline) Airway and Respiratory Function: Patent airway with normal (patient baseline) respiratory exam Cardiovascular Function: Hemodynamically Stable Hydration Status: Adequately Hydrated Nausea & Vomiting: No Nausea or Vomiting Pain: Pt. Denies Any Pain Peripheral Nerve Block: Patient did not receive a nerve block
== END 2024-01-19 09:20 | disposition home or self-care (01) ==
LOC: SUR 06:32
PROVIDERS: PCP Family Medicine; Visit Provider Ophthalmology
PROC: (CPT 66984; principal; 2024-01-19 08:30)
DX: H25.11 Age-related nuclear cataract, right eye (principal); Z98.42 Cataract extraction status, left eye
CPT/HCPCS: 66984; 00123; V2632; J2003

== ENCOUNTER 2024-03-29 10:52 | Outpatient (REF) | payer MEDICARE, SELFPAY ==
[2024-03-29 16:01] LABS: COMMENT (LAB VIEW ONLY) 76.44 mg/dL; Microalb ug/mg Crea 7.7 ug/mg Cr
== END 2024-03-29 10:53 | disposition home or self-care (01) ==
LOC: NCHCN 10:52
PROVIDERS: PCP Family Medicine; Visit Provider Family Medicine
DX: E11.9 Type 2 diabetes mellitus without complications (principal)
CPT/HCPCS: 82043; 82570

== ENCOUNTER 2024-06-20 01:13 | Outpatient (CLI) | payer MEDICARE, SELFPAY ==
--- NOTE | 2024-06-20 07:00 | DI.RAD_ITS ---
Exam(s) XR FOOT RT COMPLETE EXAM: XR FOOT RT COMPLETE CLINICAL HISTORY: Right foot pain,m79.671. TECHNIQUE: 2D digital imaging was performed of the right foot. Three images were obtained. AP, obl ique and lateral views were obtained. COMPARISON: No exams were available for comparison FINDINGS: BONES: No acute fracture is present. No bony destructive lesion is seen. There is a small plantar carlee caneal spur. JOINTS: No dislocation present. Moderately severe arthrosis is seen in the right foot predominantly i nvolving the interphalangeal joints of the toes. Arthritic changes are also seen at the 1st and 2nd MTP joints. SOFT TISSUE: Normal. Vascular calcifications are present. 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 DATA REPOSITORY: RADIATION DOSE DELIVERED:
--- NOTE | 2024-06-20 07:00 | DI.RAD_ITS ---
Exam(s) XR FOOT LT COMPLETE EXAM: XR FOOT LT COMPLETE CLINICAL HISTORY: Left foot pain,m79.672. TECHNIQUE: 2D digital imaging was performed of the left foot. Three images were obtained. AP, obli que and lateral views were obtained. COMPARISON: No exams were available for comparison FINDINGS: BONES: No acute fracture is present. No bony destructive lesion is seen. JOINTS: No dislocation present. There is a hallux valgus deformity. There are moderate degenerative changes seen in the foot predominantly involving the interphalangeal joints of the toes. SOFT TISSUE: Vascular calcifications are present. IMPRESSION: Hallux valgus deformity and moderate degenerative changes in the foot. DATA REPOSITORY: RADIATION DOSE DELIVERED:
== END 2024-06-20 01:33 ==
LOC: DI 01:14
PROVIDERS: PCP Family Medicine; Visit Provider Podiatrist
DX: M19.071 Primary osteoarthritis, right ankle and foot (principal); M20.22 Hallux rigidus, left foot; M19.072 Primary osteoarthritis, left ankle and foot; M79.671 Pain in right foot; M79.672 Pain in left foot; R60.0 Localized edema; R26.81 Unsteadiness on feet; E11.9 Type 2 diabetes mellitus without complications; M25.571 Pain in right ankle and joints of right foot; M25.572 Pain in left ankle and joints of left foot
CPT/HCPCS: 99214; 73630

== ENCOUNTER 2024-09-09 02:15 | Outpatient (CLI) | payer MEDICARE, SELFPAY ==
--- NOTE | 2024-09-09 | DI.MAMMO_ITS ---
Exam(s) MAMMO SCREENING EXAM: MAMMO SCREENING CLINICAL HISTORY: Screening, Z12.31 TECHNIQUE: Bilateral full field digital CC and MLO mammographic images were obtained with 3D tomosynthesis and utilizing computer aided detection (CAD). COMPARISON: Comparison is made with prior examinations. FINDINGS: Masses/Architectural Distortion: No suspicious masses or areas of architectural distortion are present. Microcalcifications: No suspicious pleomorphic-type are seen. Skin Thickening/Nipple Retraction: None. IMPRESSION: 1. No significant interval change with no specific features of malignancy noted. 2. Unless there is more urgent need, screening mammography is recommended, as per [employer] guidelines. BI-RADS Category 1 - Negative Breast Density - Category B - There are scattered areas of fibroglandular density. Breast density Category C or D implies that the patient has dense breast tissue. Dense breast tissue can make it harder to find cancer on a mammogram. Dense breast tissue is also associated with an increased risk of breast cancer. This information about the result of the mammogram report was provided to the patient to raise their awareness. Use this report when you speak with the patient about their risks for breast cancer, which includes their family history. At that time, you may recommend additional screening tests (Ultrasound or MRI) as these tests may add significant information. A negative radiographic report should not delay biopsy if a dominant or clinically suspicious mass is present. Up to ten percent of cancers are not identified on mammography. A negative report may reinforce clinical impression. Adenosis and dense breasts may obscure an underlying neoplasm. False positive reports average 6 to 10%. Patient will receive a letter notifying them of these results.
== END 2024-09-09 02:35 ==
LOC: DI 02:15
PROVIDERS: PCP Family Medicine; Visit Provider Family Medicine
DX: Z12.31 Encounter for screening mammogram for malignant neoplasm of breast (principal); R92.323 Mammographic fibroglandular density, bilateral breasts
CPT/HCPCS: 77063; 77067